=== PATIENT | female | born 1960 | race Caucasian/White ===

== ENCOUNTER → 2018-10-20 12:12 | Day surgery (SDC) | payer OTHER ==
[~2018-10-20 12:12] MED LIST: Acetaminophen TAB* 325 MG PO PRN; Buffered Lidocaine 1% SYRIN* 1 ML/SYRINGE INTRADERM ONE; Lactated Ringers 1000 ML Bag* 1,000 ML IV SCH; Lidocaine 2% PF * 5 ML VIAL ONE; Midazolam* 1 MG/ML 5 ML VIAL (5 MG) ONE; Ondansetron INJ* 2 MG/ML VIAL ONE; Propofol* 10 MG/ML 20 ML BTL ONE; fentaNYL* 50 MCG/ML 2 ML VIAL (100 MCG VIAL) ONE
[2018-10-20 15:11] VITALS: BP 136/82
--- NOTE | 2018-10-21 02:06 | PRO ---
CC: Dr. Betsy Rae * COLONOSCOPY REPORT: DATE OF PROCEDURE: 10/20/18 - [facility] PRIMARY CARE PHYSICIAN: Betsy Rae MD INDICATION FOR PROCEDURE: Family history of colorectal cancer. PROCEDURE PERFORMED: Complete colonoscopy to the cecum. MEDICATIONS GIVEN: Please see anesthesia records. DESCRIPTION OF PROCEDURE: After the colonoscopy procedure including the risks, benefits, and alternatives with the risks not limited to perforation, surgery, missed lesions, and/or were explained to the patient, written informed consent was obtained, IV medication was given, and a rectal exam was performed. The rectal exam was unremarkable. The adult Olympus colonoscope was then inserted into the patient's rectum and advanced very carefully through the entirety of the colon, into the cecal base. Cecal base was carefully inspected and normal in appearance. The terminal ileal valve was identified and normal in appearance. Over the next 7 minutes, the scope was carefully withdrawn inspecting the mucosa and the mucosa was normal in appearance without any polyps or lesions. The colon was quite tortuous requiring multiple loop reductions, but this was tolerated well. On return to the rectum, direct views were normal. On retroflexion, the views were normal as well. The scope was then removed from the patient. She tolerated the procedure well. She returned to the recovery room in stable condition. IMPRESSION: 1. Complete colonoscopy to the cecum. 2. Good prep. 3. Tortuous colon. 4. No polyps identified. RECOMMENDATION: Repeat colonoscopy in 5 years' time. [id number]/[facility] #: [id number] MTDD
== END | disposition home or self-care (01) ==
LOC: OR 12:12
PROVIDERS: ATTEND Internal Medicine Gastroenterology
DX: Z12.11 Encounter for screening for malignant neoplasm of colon (principal); Z80.0 Family history of malignant neoplasm of digestive organs; F41.9 Anxiety disorder, unspecified; M19.90 Unspecified osteoarthritis, unspecified site; Z79.891 Long term (current) use of opiate analgesic
CPT/HCPCS: 81025; J2250; J2405; J2704; J3010

== ENCOUNTER 2019-04-30 15:58 | Emergency (ER) | payer OTHER ==
--- OUTSIDE RECORDS SUMMARY | 2019-04-30 16:35 | XMS REPORT | Continuity of Care Document ---
:1960 External Reference #:[id number] Author Name Samara Gill O.D. Address [address] [place] [address] Care Team Providers Name Role Phone Betsy Rae M.D. - Internal Medicine Care Team Information Master Machinist [phone] Tiffany Sawant - Pediatric Care Team Information Master Machinist Unavailable Dermatology Problems Active Problems Provider Date Rosacea Onset: Epiretinal membrane Abdullahi Duran M.D. Onset: 10/23/2014 Nuclear senile cataract Abdullahi Duran M.D. Onset: 10/23/2014 Vitreous degeneration Abdullahi Duran M.D. Onset: 10/23/2014 Myopia Rupinder Gaston O.D. Onset: 07/27/2015 Retinal detachment Golden Lehman M.D. Onset: 10/29/2015 Chronic allergic conjunctivitis Neha Moraes O.D. Onset: 06/19/2017 Presbyopia Neha Moraes O.D. Onset: 06/19/2017 Chalazion Samara Gill O.D. Onset: 04/03/2019 Postsurgical chorioretinal scar Neha Moraes O.D. Onset: 07/23/2018 Social History Type Date Description Comments Sex Unknown ETOH Use Rarely consumes alcohol Tobacco Use Start: Unknown Patient has never smoked Recreational Drug Use Denies Drug Use Smoking Status Reviewed: 04/03/19 Patient has never smoked Allergies, Adverse Reactions, Alerts Active Allergies Reaction Severity Comments Date Amoxicillin Urticaria 10/23/2014 Medications Active Medications SIG Qnty Indications Ordering Date Provider Neomycin/Polymyxin/Dex apply /" in 3.500gm H00.14 Samara Echeverria 04/03/2019 amethasone Left Eye at Anjali Gill [id number] bedtime for 2 Ointment weeks. Blink Tears 1 drop both eyes Abdullahi Duran, 10/22/2014 Lubricating Eye Drops as needed (about M.D. twice a week) 0.25% Solution Oxycontin Crepet, Betsy 10mg Tab ER 12H M.D. Abuse-Det Diazepam Crepet, Betsy 5mg Tablets M.D. Metronidazole Crepet, Betsy 1% Gel M.D. Adapalene Crepet, Betsy 0.1% Cream M.D. Aleve as needed Unknown 220mg Capsules Excedrin Back & Body Unknown 250-250mg Tablets Multivitamins Unknown Capsules Immunizations Description No Information Available Vital Signs Description No Information Available Results Description No Information Available Procedures Description No Information Available Medical Devices Description No Information Available Encounters Description No Information Available Assessments Date Code Description Provider 04/03/2019 H00.14 Chalazion left upper eyelid Samara Gill O.D. Plan of Treatment Future Appointment(s):07/29/2019 9:00 am - Neha Moraes O.D. at Abdullahi Duran MD, 04/03/2019 - Samara Gill O.D.H00.14 Chalazion left upper eyelidNew Medication:Neomycin/Polymyxin/Dexamethasone 3.5-78537-0.1 - apply 1/4 " in Left Eye at bedtime for 2 weeks.Comments:You have a bump on your left eye called a Chalazion. Sometimes, these can go away on their own withtreatment at home. . If this does not go away on its own after a few months, or becomes more inflamed and irritated, please call our office to schedule an appointment. USE A HOT COMPRESS FOR 5-10 MINUTES 4-5 TIMES A DAY DO NOT WEAR CONTACTS IN LEFT EYE TRY USING 1000 MG OF OMEGAS PER DAYPUT OINTMENT ON LEFT LIDS AT BEDTIME FOR TWO WEEKS.Follow up:PRN 07/2019 CEE Functional Status Description No Information Available Mental Status Description No Information Available Referrals Description No Information Available
[2019-04-30 17:04] VITALS: BP 163/88
--- NOTE | 2019-04-30 17:21 | UC ---
Respiratory Complaint HPI - HPI Summary HPI Summary: 3-4 DAYS OF DRY COUGH, CONGESTION AND MILD SHORTNESS OF BREATH WITH EXERTION. FEELS WHEEZY AT TIMES. DENIES NAUSEA. NO SWEATS. NO FEVER. NO HEADACHE. NO RECENT TRAVEL. NO KNOWN EXPOSURE TO COVID-19 OR ANYONE UNDER INVESTIGATION FOR COVID-19. TODAY SHE NOTICED SOME LEFT ANTERIOR CHEST PAIN THAT IS RADIATING THROUGH TO HER BACK. POSITIVE FAMILY HISTORY OF HEART DISEASE. - History of Current Complaint Chief Complaint: UCGeneralIllness Stated Complaint: COUGH,WHEEZING Time Seen by Provider: 04/30/19 16:33 Hx Obtained From: Patient Hx Last Menstrual Period: post Onset/Duration: Gradual Onset, Lasting Days, Still Present Timing: Constant Severity Initially: Mild Severity Currently: Mild Pain Intensity: 2 Pain Scale Used: 0-10 Numeric Character: Cough: Nonproductive Aggravating Factors: Nothing Alleviating Factors: Nothing Associated Signs And Symptoms: Positive: Dyspnea, URI, Nasal Congestion - Allergies/Home Medications Allergies/Adverse Reactions: Allergies Allergy/AdvReac Type Severity Reaction Status Date / Time amoxicillin Allergy Intermediate Rash, Verified 04/30/19 16:42 facial redness Home Medications: Home Medications Desloratadine/Pseudoephedrine [Clarinex-D 12 Hour Tablet] 1 tab PO DAILY PRN 06/26 [History Confirmed 04/30/19] Diazepam TAB(*) [Valium TAB(*)] 5 mg PO TID PRN 10/13/18 [History Confirmed ] Acetaminophen [Tylenol] 1 tab PO TID 04/30/19 [History Confirmed 04/30/19] PMH/Surg Hx/FS Hx/Imm Hx Previously Healthy: Yes - Surgical History Surgical History: Yes Surgery Procedure, Year, and Place: bilat shoulder surgery, neck fusion, Retinal detachement rt eye [place] SILICONE BUCKEL - NO CLIP. - Family History Known Family History: Positive: Cardiac Disease, Respiratory Disease - COPD - Social History Alcohol Use: Occasionally Substance Use Type: None Smoking Status (MU): Never Smoked Tobacco Review of Systems All Other Systems Reviewed And Are Negative: Yes Constitutional: Positive: Negative ENT: Positive: Nasal Discharge. Negative: Sore Throat Respiratory: Positive: Shortness Of Breath, Cough Cardiovascular: Positive: Chest Pain Gastrointestinal: Positive: Negative Musculoskeletal: Positive: Myalgia Neurological/Mental Status: Negative: Headache Physical Exam Triage Information Reviewed: Yes Appearance: Well-Appearing, No Pain Distress, Well-Nourished Vital Signs: Initial Vital Signs Temp 99.4 F 04/30/19 16:43 Pulse 88 04/30/19 16:43 Resp 16 04/30/19 16:43 BP 163/88 04/30/19 16:43 Pulse Ox 97 04/30/19 16:43 Laboratory Tests 04/30/19 17:15 Influenza A (Rapid) Negative Influenza B (Rapid) Negative Vital Signs Reviewed: Yes Eyes: Positive: Conjunctiva Clear ENT: Positive: Hearing grossly normal, TMs normal Neck: Positive: Supple, Nontender, No Lymphadenopathy Respiratory Exam: Normal Cardiovascular Exam: Normal Abdomen Description: Positive: Soft Musculoskeletal: Positive: No Edema Neurological: Positive: Alert Psychological: Positive: Age Appropriate Behavior Skin: Negative: Rashes Diagnostics - EKG Cardiac Rate: NL - 91BPM Cardiac Rhythm: Sinus: Normal Ectopy: None ST Segment: Normal Respiratory Course/Dx - Course Course Of Treatment: FLU NEGATIVE. GIVEN RESPIRATORY SYMPTOMS, TESTING FOR COVID19 DONE TODAY. PATIENT WILL BE CONTACTED BY HD WITH RESULTS. CONTACT/DROPLET PRECAUTIONS TAKEN BY NURSING AND MYSELF DURING ENCOUNTER. PATIENT LIKELY WITH A VIRAL URI HOWEVER DUE TO HER COMPLAINT OF LEFT-SIDED CHEST PAIN ALONG WITH HER AGE AND FAMILY HISTORY WILL SEND TO THE ER FOR FURTHER EVALUATION FOR POSSIBLE UNDERLYING CARDIAC CONDITION. PT OFFERED TRANSPORT TO THE ER BY AMBULANCE BUT DECLINES. ADVISED THAT BY NOT TRAVELING IN A MONITORED SETTING SHE COULD BE RISKING WORSENING OF HER CONDITION THAT COULD POSE A THREAT TO HER LIFE, HEALTH AND MEDICAL SAFETY. SHE VERBALIZES UNDERSTANDING AND CONTINUES TO DECLINE AMBULANCE TRANSFER. - Differential Dx/Diagnosis Provider Diagnosis: Chest pain, Upper respiratory infection - Physician Notification/Consults Discussed Patient Care With: Jay Patel - TO [facility] BY PRIVATE CAR Time Discussed With Above Provider: 17:30 Instructed by Provider To: MD Will See In ED Discharge ED - Sign-Out/Discharge Documenting (check all that apply): Patient Departure All imaging exams completed and their final reports reviewed: No Studies - Discharge Plan Condition: Stable Disposition: TRANS HIGHER LVL OF CARE FAC Patient Education Materials: Chest Pain (ED), Upper Respiratory Infection (ED) Forms: COVID-19 Tested & Isolation Referrals: Betsy Rae MD [Primary Care Provider] - If Needed Additional Instructions: GO DIRECTLY TO THE [facility] ER FROM HERE FOR FURTHER EVALUATION OF YOUR CHEST PAIN. YOU HAVE DECLINED TRANSFER TO THE ER BY AMBULANCE. BE ADVISED THAT BY NOT TRAVELING IN A MONITORED SETTING YOU COULD BE RISKING WORSENING OF YOUR CONDITION THAT COULD POSE A THREAT TO YOUR LIFE, HEALTH AND MEDICAL SAFETY. FLU NEGATIVE. YOUR RESPIRATORY SYMPTOMS ARE LIKELY VIRALLY MEDIATED AND SHOULD RESOLVE ON THEIR OWN WITH TIME. NO INDICATION FOR ANTIBIOTICS AT PRESENT. GET REST AND STAY WELL HYDRATED. TESTING FOR COVID-19 COMPLETED TODAY. YOU SHOULD EXPECT RESULTS IN 3-7 DAYS. AFTER YOUR HOSPITAL VISIT YOU MUST REMAIN IN SELF- ISOLATION AT HOME PENDING COVID-19 RESULTS. THE HEALTH DEPARTMENT WILL BE FOLLOWING UP WITH YOU. CALL 911 IF YOU DEVELOP WORSENING RESPIRATORY DISTRESS, FEVER, PAIN OR ANY OTHER CONCERNING SYMPTOMS. - Billing Disposition and Condition Condition: STABLE Disposition: Trans Higher Lvl of Care Fac
[2019-04-30 17:27] LABS: Influenza A Molecular Negative (Negative); Influenza B Molecular Negative (Negative)
== END 2019-04-30 17:45 | disposition short-term general hospital (02) ==
LOC: UCEAST 15:58
DX: R07.89 Other chest pain (principal); J06.9 Acute upper respiratory infection, unspecified; Z88.0 Allergy status to penicillin
CPT/HCPCS: 99212; G0463

== ENCOUNTER 2019-04-30 18:00 | Emergency (ER) | payer OTHER ==
--- NOTE | 2019-04-30 18:41 | ED ---
Respiratory - HPI Summary HPI Summary: 59 y/o female presented to [facility] after 3 days of cough, SOB, and chills. Today pt also experienced episodes of pain in the left chest and left scapula. Pain is episodic and not exertional. Pt denies nausea, unilateral leg swelling, leg pain, and diaphoresis. Pt denies hx of blood clots, recent immobilization or travel. Pt has not used hormones recently. Pt had a stress test 1 year ago with none since and notes fhx of [place] in her grandfather at 54. Medications reviewed. Allergies noted. Home Medications Medication Instructions Recorded Confirmed Type Desloratadine/Pseudoephedrine 1 tab PO DAILY PRN 10/13/18 04/30/19 History [Clarinex-D 12 Hour Tablet] Diazepam TAB(*) [Valium TAB(*)] 5 mg PO TID PRN 10/13/18 04/30/19 History Acetaminophen [Tylenol] 1 tab PO TID 04/30/19 04/30/19 History - History of Current Complaint Stated Complaint: COUGH WITH SOME SOB PER PT Time Seen by Provider: 04/30/19 18:03 Hx Obtained From: Patient Onset/Duration: Lasting Days, Still Present Character: Cough (Nonproductive) Aggravating Factor(s): Nothing Alleviating Factor(s): Nothing Associated Signs and Symptoms: SOB, Chills - Allergy/Home Medications Allergies/Adverse Reactions: Allergies Allergy/AdvReac Type Severity Reaction Status Date / Time amoxicillin Allergy Intermediate Rash, Verified 04/30/19 16:42 facial redness Home Medications: Home Medications Desloratadine/Pseudoephedrine [Clarinex-D 12 Hour Tablet] 1 tab PO DAILY PRN 06/26 [History Confirmed 04/30/19] Diazepam TAB(*) [Valium TAB(*)] 5 mg PO TID PRN 10/13/18 [History Confirmed ] Acetaminophen [Tylenol] 1 tab PO TID 04/30/19 [History Confirmed 04/30/19] PMH/Surg Hx/FS Hx/Imm Hx Endocrine/Hematology History: Denies: Hx Diabetes, Hx Thyroid Disease Cardiovascular History: Denies: Hx Hypertension, Hx Pacemaker/ICD, Other Cardiovascular Problems/ Disorders Respiratory History: Denies: Hx Asthma, Hx Chronic Obstructive Pulmonary Disease (COPD), Other Respiratory Problems/Disorders GI History: Denies: Hx Ulcer, Other GI Disorders History: Denies: Other Problems/Disorders Musculoskeletal History: Reports: Hx Arthritis - NECK, SHOULDERS, LOWER BACK, Other Musculoskeletal History - PRN DIAZEPAM FOR SHOULDER DISCOMFORT Sensory History: Reports: Hx Contacts or Glasses - INSTRUCTS GIVEN Denies: Hx Hearing Aid Opthamlomology History: Reports: Hx Contacts or Glasses - INSTRUCTS GIVEN Neurological History: Denies: Other Neuro Impairments/Disorders Psychiatric History: Denies: Hx Panic Disorder - Surgical History Surgery Procedure, Year, and Place: bilat shoulder surgery, neck fusion, Retinal detachement rt eye [place] SILICONE BUCKEL - NO CLIP. Hx Anesthesia Reactions: No Infectious Disease History: Denies: Hx Hepatitis, Hx Human Immunodeficiency Virus (HIV) - Family History Known Family History: Positive: Cardiac Disease, Respiratory Disease - COPD - Social History Alcohol Use: Occasionally Substance Use Type: Reports: None Smoking Status (MU): Never Smoked Tobacco Review of Systems Positive: Chills. Negative: Skin Diaphoresis Positive: Shortness Of Breath, Cough Negative: Nausea Positive: Other - negative - leg pain. Negative: Edema All Other Systems Reviewed And Are Negative: Yes Physical Exam - Summary Physical Exam Summary: Constitutional: Well-developed, Well-nourished, Alert. (-) Distressed Skin: Warm, Dry HENT: Normocephalic; Atraumatic Eyes: Conjunctiva normal Neck: Musculoskeletal ROM normal neck. (-) JVD, (-) Stridor, (-) Tracheal deviation Cardio: Rhythm regular, rate normal, Heart sounds normal; Intact distal pulses; Radial pulses are 2+ and symmetric. (-) Murmur Pulmonary/Chest wall: Effort normal. (-) Respiratory distress, (-) Wheezes, (-) Rales Abd: Soft, (-) tenderness, (-) Distension, (-) Guarding, (-) Rebound Musculoskeletal: (-) Edema Lymph: (-) Cervical adenopathy Neuro: Alert, Oriented x3 Psych: Mood and affect Normal Triage Information Reviewed: Yes Vital Signs Reviewed: Yes Procedures - Sedation Patient Received Moderate/Deep Sedation with Procedure: No Diagnostics - Laboratory Result Diagrams: 04/30/19 18:15 04/30/19 18:15 Lab Statement: Any lab studies that have been ordered have been reviewed, and results considered in the medical decision making process. - Radiology cxr Radiology Interpretation Completed By: ED Physician Summary of Radiographic Findings: No acute process. This x-ray was reviewed and interpreted by the ED physician pending official read. - EKG 1847 Cardiac Rate: NL EKG Rhythm: Sinus Rhythm Summary of EKG Findings: EKG at 1847 shows NSR at 77bpm. Baseline wander in v4. No evidence of ischemia. No STEMI. This EKG was reviewed and interpreted by the ED physician. Disposition - Course Course Of Treatment: Patient is here with viral URI symptoms in episodic chest pain. Patient's chest pain does not sound ischemic in nature. Patient was tested for [place] 19 at urgent care. Patient is also tested for flu which was negative. Patient had a negative d-dimer here. Patient had an EKG which showed no ischemic changes. Patient had performed which was grossly unremarkable. Patient has a low heart score and will go home to quarantine and follow-up with her PCP - Diagnoses Provider Diagnoses: Chest pain, SOB (shortness of breath), Cough, Fever Discharge ED - Sign-Out/Discharge Documenting (check all that apply): Patient Departure - dc - Discharge Plan Condition: Stable Disposition: HOME Patient Education Materials: Chest Pain (ED), Acute Cough (ED), Shortness of Breath (ED) Forms: COVID-19 Tested & Isolation Referrals: Betsy Rae MD [Primary Care Provider] - Additional Instructions: You were seen in the emergency department for coronavirus rule out. The department of health will contact you within 24 hours. Due to the pandemic, you should stay in your house and self quarantine. See the separate quarantine paper for further instructions. You should wear a mask if you're outside of your personal room. We encourage handwashing as well as limited contact with other people including the elderly and the immunocompromised. If any studies were not completed at the time of discharge you will be called with the relevant results. Return to emergency department for chest pain, severe trouble breathing, worsening or concerning symptoms After your quarantine, follow up with your primary care provider for a stress test. It was a pleasure taking care of you today. - Billing Disposition and Condition Condition: STABLE Disposition: Home - Attestation Statements Document Initiated by Scribe: Yes Documenting Scribe: Martinez Babcock Provider For Whom Scribe is Documenting (Include Credential): Jay Patel MD Scribe Attestation: Martinez Adan, scribed for Jay Patel MD on 05/02/19 at 1054. Scrib[place] Documentation Reviewed: Yes Provider Attestation: The documentation as recorded by the Martinez shea accurately reflects the service I personally performed and the decisions made by me, Jay Patel MD Status of Screkaterina Document: Viewed
[2019-04-30 18:58] LABS: ABS Basophils 0.1 10^3/ul (0-0.2); ABS Eosinophils 0.1 10^3/ul (0-0.6); ABS Lymphocytes 1.7 10^3/ul (1.0-4.8); ABS Monocytes 0.5 10^3/ul (0-0.8); ABS Neutrophils 4.9 10^3/ul (1.5-7.7); Eosinophil % 0.7 %; Hematocrit 41 % (35-47); Hemoglobin 13.8 g/dL (12.0-16.0); Lymphocyte % 23.5 %; Mean Corpuscular HGB Conc 34 g/dL (31-36); Mean Corpuscular Hemoglobin 31 pg (27-31); Mean Corpuscular Volume 91 fL (80-97); Mean Platelet Volume 7.7 fL (7.4-10.4); Nucleated Red Blood Cells % 0.1; Platelet Count 291 10^3/uL (150-450); Red Blood Count 4.48 10^6 /uL (3.70-4.87); Red Cell Distribution Width 13 % (10-15); White Blood Count 7.1 10^3/uL (3.5-10.8)
[2019-04-30 19:20] LABS: Albumin 4.2 g/dL (3.2-5.2); Albumin/Globulin Ratio 1.5 (1-3); BUN/Creatinine Ratio 11.1 (8-20); Calcium 9.4 mg/dL (8.6-10.3); EGFR African American 78.1 (>60); EGFR Non-African American 64.5 (>60); Globulin 2.8 g/dL (2-4); Potassium 3.5 mmol/L (3.5-5.0); Total Bilirubin 0.3 mg/dL (0.2-1.0)
[2019-04-30 19:22] LABS: Troponin I 0.01 ng/mL (<0.03)
[2019-04-30 22:58] VITALS: BP 145/98
== END 2019-04-30 22:57 | disposition home or self-care (01) ==
LOC: ED 18:00
DX: R05 Cough (principal); R07.9 Chest pain, unspecified; R06.02 Shortness of breath; R50.9 Fever, unspecified; Z88.0 Allergy status to penicillin
CPT/HCPCS: 36415; 71045; 80053; 84484; 85025; 85379; 93005; 99284